=== PATIENT | male | born 1955 ===

== ENCOUNTER 2020-04-13 05:25 | Day surgery (SDC) | payer OTHER ==
[~2020-04-13 05:25] MED LIST: ALPRAZOLAM ODT1 MG PO; AMLODIP PO; ATORVASTATIN CA40 MG PO; CARVEDILOL6.25 MG PO; FENOFIBRATE160 MG PO; IBERSARTAN PO; ISOSORBIDE MONO60 MG PO; JANUMET 50-5001 EACH PO; PLAVIX75 MG PO; PROTONIX40 MG PO
[2020-04-13] MEDS ORDERED: PERCOCET 5-3251 EACH PO (08:15)
[2020-04-13] MEDS ORDERED: DERMOPLAST PAIN78 GM TOP (08:16)
[2020-04-13] MEDS ORDERED: RECTICARE30 GM TOP (08:16)
== END 2020-04-13 13:40 | disposition home or self-care (01) ==
LOC: CIR.AMB 05:25
PROVIDERS: ATTEND Surgery
DX: K60.1 Chronic anal fissure (principal); Z20.822 Contact with and (suspected) exposure to COVID-19